=== PATIENT | male | born 1965 ===

== ENCOUNTER → 2024-06-27 14:05 | Outpatient (REF) | payer BC, SELFPAY | LOC: HWRAD 14:05 | PROVIDERS: ATTENDING PHYSICIAN Physician Assistant Medical | DX: R10.32 Left lower quadrant pain (principal); R31.29 Other microscopic hematuria | CPT/HCPCS: 36415; 74177; 80053; 80061; 84403; 84443; 85025; G0103; Q9967 ==

== ENCOUNTER 2025-09-10 06:28 | Day surgery (SDC) | payer BC, SELFPAY | END 2025-09-10 08:31 | disposition home or self-care (01) | LOC: GI 06:28 | PROVIDERS: ATTENDING PHYSICIAN Internal Medicine | DX: Z12.11 Encounter for screening for malignant neoplasm of colon (principal); D12.2 Benign neoplasm of ascending colon; K63.5 Polyp of colon; K62.1 Rectal polyp; K64.8 Other hemorrhoids; Z86.0101 Personal history of adenomatous and serrated colon polyps | CPT/HCPCS: 45385; 45380; 88305 ==